=== PATIENT | female | born 1995 | race Caucasian/White ===

== ENCOUNTER 2017-05-04 16:42 | Emergency (ER) | payer OTHER ==
--- NOTE | 2017-05-04 16:59 | ED Physician Documentation ---
PD HPI FEMALE - Stated complaint Stated Complaint: ABD PX - Chief complaint Chief Complaint: Abd Pain - History obtained from History obtained from: Patient - History of Present Illness Timing - onset: Today (cramping lower abd pain without vaginal bleeding.) Timing - duration: Hours Timing - details: Gradual onset, Intermittant Associated symptoms: Pelvic pain. No: Fever, Vaginal bleeding, Vaginal discharge, Genital sore/lesion, Dysuria Contributing factors: (about 6 weeks by dates. 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 ) - Present Medications Home Medications: Ambulatory Orders Medication Instructions Recorded Confirmed Citalopram [CeleXA] 20 mg PO DAILY 05/04/17 05/04/17 Pnv95/Ferrous Fumarate/FA 1 each PO DAILY 05/04/17 05/04/17 [ Tablet] acetaZOLAMIDE [Diamox] 500 mg PO BID 05/04/17 05/04/17 - Allergies Allergies/Adverse Reactions: Allergies Allergy/AdvReac Type Severity Reaction Status Date / Time Penicillins Allergy Anaphylaxis Verified 05/04/17 16:53 - Living Situation Living Situation: reports: With spouse/s.o. Living Arrangement: reports: At home - Family History Family history: reports: Non contributory PD ED PE NORMAL - Vitals Vital signs reviewed: Yes - General General: Alert and oriented X 3, No acute distress, Well developed/nourished - HEENT HEENT: Pharynx benign - Neck Neck: Supple, no meningeal sign, No adenopathy - Cardiac Cardiac: RRR, No murmur - Respiratory Respiratory: Clear bilaterally - Abdomen Abdomen: Normal bowel sounds, Soft, Non distended, No organomegaly, Other (some tender suprapubic. No guarding. No general abd tenderness. No percussion tenderness. ) - Female Female : Deferred - Rectal Rectal: Deferred - Back Back: No CVA TTP - Derm Derm: Normal color, Warm and dry - Extremities Extremities: Normal ROM s pain, No edema, No calf tenderness / cord - Neuro Neuro: Alert and oriented X 3, No motor deficit, Normal speech Results - Vitals Vitals: Vital Signs - 24 hr 05/04/17 05/04/17 16:50 19:56 Temperature 36.8 C Heart Rate 77 71 Respiratory 18 16 Rate Blood Pressure 119/72 117/64 O2 Saturation 100 100 Oxygen O2 Source Room air - Labs Labs: Laboratory Tests 05/04/17 05/04/17 05/04/17 17:30 17:41 17:41 WBC 8.5 RBC 4.88 Hgb 13.6 Hct 40.5 MCV 83.1 MCH 27.9 MCHC 33.6 RDW 14.2 Plt Count 361 MPV 7.9 Neut # 6.1 Lymph # 1.8 Tompkins # 0.5 Eos # 0.1 Baso # 0.0 Absolute Nucleated RBC 0.00 Nucleated RBCs 0.0 Sodium 137 Potassium 3.7 Chloride 106 Carbon Dioxide 23 Anion Gap 8.0 BUN 11 Creatinine 0.7 Estimated GFR (MDRD) 105 Glucose 74 Calcium 9.6 Total Bilirubin 0.4 AST 18 ALT 22 Alkaline Phosphatase 64 Total Protein 7.9 Albumin 4.6 Globulin 3.3 Albumin/Globulin Ratio 1.4 Lipase 23 HCG, Quant Urine Color YELLOW Urine Clarity CLEAR Urine pH 6.0 Ur Specific [place] 1.015 Urine Protein NEGATIVE Urine Glucose (UA) NEGATIVE Urine Ketones NEGATIVE Urine Occult Blood NEGATIVE Urine Nitrite NEGATIVE Urine Bilirubin NEGATIVE Urine Urobilinogen 0.2 (NORMAL) Ur Leukocyte Esterase NEGATIVE Ur Microscopic Review NOT INDICATED Urine Culture Comments NOT INDICATED 05/04/17 17:41 WBC RBC Hgb Hct MCV MCH MCHC RDW Plt Count MPV Neut # Lymph # [place] # Eos # Baso # Absolute Nucleated RBC Nucleated RBCs Sodium Potassium Chloride Carbon Dioxide Anion Gap BUN Creatinine Estimated GFR (MDRD) Glucose Calcium Total Bilirubin AST ALT Alkaline Phosphatase Total Protein Albumin Globulin Albumin/Globulin Ratio Lipase HCG, Quant 6510.00 Urine Color Urine Clarity Urine pH Ur Specific [place] Urine Protein Urine Glucose (UA) Urine Ketones Urine Occult Blood Urine Nitrite Urine Bilirubin Urine Urobilinogen Ur Leukocyte Esterase Ur Microscopic Review Urine Culture Comments - Rads (name of study) OB U/S Radiology: Prelim report reviewed (gestational sac 5.4 weeks without sac. No free fluid. Normal ovaries. ) PD MEDICAL DECISION MAKING - ED course Complexity details: reviewed results (gestational sac without pole, is early at 5.4 weeks, but quant is at 6K. Talked with Dr. Rios who says reasonable for pt to f/u 2-3 days with her OB. Repeat quant in 2-3 days. Consider blighted ovum vs. potential ectopic vs. just early in . ), considered differential, d/w patient Departure - Departure Disposition: 01 Home, Self Care Clinical Impression: Early stage of , Pelvic pain affecting Condition: Stable Record reviewed to determine appropriate education?: Yes Instructions: ED Abdominal Pain Rule Out Ectopic Comments: Drink lots of fluids. Tylenol if needed for pains. Call your OB clinic tomorrow morning for an appointment in the next 3 or 4 days. Bring your report and ultrasound disc with you. Return sooner if increasing pain, vaginal bleeding, fever, other concerns. Discharge Date/Time: 05/04/17 19:57
[2017-05-04] MEDS ORDERED: ONDANSETRON ODT 4 MG TABLET TL STA (17:12)
[2017-05-04] MEDS ORDERED: ACETAMINOPHEN 325 MG TABLET PO STA (17:13)
[2017-05-04] MEDS ORDERED: IBUPROFEN 400 MG TABLET PO STA (17:13)
[2017-05-04] MEDS ORDERED: ACETAMINOPHEN 325 MG TABLET PO ONE (17:27)
[2017-05-04] MEDS ORDERED: IBUPROFEN 400 MG TABLET PO ONE (17:27)
[2017-05-04] MEDS ORDERED: ONDANSETRON ODT 4 MG TABLET ONE (17:28)
[2017-05-04 17:38] LABS: BILIRUBIN,URINE NEGATIVE (NEGATIVE)
[2017-05-04 17:40] LABS: UA CHARGE (STRIP ONLY) YES; UR CULTURE IF IND NOT INDICATED
[2017-05-04 17:57] LABS: BASOPHILS % (AUTO) 0.5 %; EOSINOPHILS # (AUTO) 0.1 10^3/uL (0.0-0.7); EOSINOPHILS % (AUTO) 0.9 %; HCT - HEMATOCRIT 40.5 % (37.0-47.0); HGB - HEMOGLOBIN 13.6 g/dL (12.0-16.0); LYMPHOCYTES # (AUTO) 1.8 10^3/uL (1.5-3.5); LYMPHOCYTES % (AUTO) 20.5 %; MEAN CORPUSCULAR HEMOGLOBIN 27.9 pg (27.0-31.0); MEAN CORPUSCULAR HGB CONC 33.6 g/dL (32.0-36.0); MEAN CORPUSCULAR VOLUME 83.1 fL (81.0-99.0); MEAN PLATELET VOLUME 7.9 fL (7.9-10.8); MONOCYTES # (AUTO) 0.5 10^3/uL (0.0-1.0); MONOCYTES % (AUTO) 6.2 %; NEUTROPHILS # (AUTO) 6.1 10^3/uL (1.5-6.6); NEUTROPHILS % (AUTO) 71.9 %; RED BLOOD COUNT 4.88 10^6/uL (4.20-5.40); RED CELL DISTRIBUTION WIDTH 14.2 % (12.0-15.0); UNCORRECTED WHITE BLOOD COUNT 8.5 x10^3/uL; WHITE BLOOD COUNT 8.5 x10^3/uL (4.8-10.8)
[2017-05-04 18:03] LABS: ALBUMIN/GLOBULIN RATIO 1.4 (1.0-2.2); BILIRUBIN,TOTAL 0.4 mg/dL (0.2-1.0); CALCIUM 9.6 mg/dL (8.5-10.3); CREATININE 0.7 mg/dL (0.4-1.0); POTASSIUM 3.7 mmol/L (3.5-5.0); TOTAL PROTEIN 7.9 g/dL (6.7-8.2)
--- NOTE | 2017-05-04 19:10 | Ultrasound Preliminary Report ---
Exam: US OB First Trimester IMPRESSION: 1. Intrauterine gestational sac without visualization of pole. Too early to assess cardiac acti vity and differentiate normal early intrauterine from blighted ovum. [facility] SITE ID: [id number]
--- NOTE | 2017-05-04 19:13 | Ultrasound Report ---
EXAM: FIRST TRIMESTER OBSTETRIC ULTRASOUND (Less than 11 weeks) EXAM DATE: 05/04/2017 06:39 PM. CLINICAL HISTORY: Lower abd pain today; 6 weeks preg. LMP: 03/31/2017. COMPARISONS: None. TECHNIQUE: Transabdominal and transvaginal ultrasound examination with static image documentation. CLINICAL DATES: EGA 4 weeks 5 days with MAYELIN 01/05/2018 based on LMP. ASSESSMENT: Gestational Sac: Single intrauterine. Mean gestational sac diameter: 8 mm = 5 weeks 4 days. Embryo: Not seen Cardiac activity: Does not apply Yolk sac: 1 mm. Amniotic fluid: Not accurately assessed at this gestational age. Early placenta: Not visible at this gestational age. Other: No perigestational fluid collection demonstrated. MATERNAL STRUCTURES: Uterus: Anteverted. Unremarkable. Cervix: Closed. Right Ovary: 3.4 x 1.3 x 1.5 cm, volume 3.3 cc. Unremarkable. Left Ovary: 2.7 x 1.8 x 2.8 cm, volume 6.6 cc. Unremarkable. Free Fluid: None. Other: Trace free fluid in the pelvis.. IMPRESSION: 1. Intrauterine gestational sac without visualization of pole. Too early to assess cardiac acti vity and differentiate normal early intrauterine from blighted ovum. [facility] Referring Provider Line: [phone] SITE ID: [id number]
--- NOTE | 2017-05-04 19:14 | Ultrasound Preliminary Report ---
Exam: US OB TRANSVAGINAL IMPRESSION: 1. Intrauterine gestational sac without visualization of pole. Too early to assess cardiac acti vity and differentiate normal early intrauterine from blighted ovum. SITE ID: [id number]
--- NOTE | 2017-05-04 19:17 | Ultrasound Report ---
EXAM: EXAM: FIRST TRIMESTER OBSTETRIC ULTRASOUND (Less than 11 weeks) EXAM DATE: 05/04/2017 06:39 PM. CLINICAL HISTORY: Lower abd pain today; 6 weeks preg. LMP: 03/31/2017. COMPARISONS: None. TECHNIQUE: Transabdominal and transvaginal ultrasound examination with static image documentation. CLINICAL DATES: EGA 4 weeks 5 days with MAYELIN 01/05/2018 based on LMP. ASSESSMENT: Gestational Sac: Single intrauterine. Mean gestational sac diameter: 8 mm = 5 weeks 4 days. Embryo: Not seen Cardiac activity: Does not apply Yolk sac: 1 mm. Amniotic fluid: Not accurately assessed at this gestational age. Early placenta: Not visible at this gestational age. Other: No perigestational fluid collection demonstrated. MATERNAL STRUCTURES: Uterus: Anteverted. Unremarkable. Cervix: Closed. Right Ovary: 3.4 x 1.3 x 1.5 cm, volume 3.3 cc. Unremarkable. Left Ovary: 2.7 x 1.8 x 2.8 cm, volume 6.6 cc. Unremarkable. Free Fluid: None. Other: Trace free fluid in the pelvis. IMPRESSION: 1. Intrauterine gestational sac without visualization of pole. Too early to assess cardiac acti vity and differentiate normal early intrauterine from blighted ovum. Referring Provider Line: [phone] SITE ID: [id number]
[2017-05-04 19:59] VITALS: BP 117/64
== END 2017-05-04 19:57 | disposition home or self-care (01) ==
LOC: ED 16:42
DX: O26.891 Other specified pregnancy related conditions, first trimester (principal); R10.2 Pelvic and perineal pain; Z3A.01 Less than 8 weeks gestation of pregnancy; Z86.61 Personal history of infections of the central nervous system
CPT/HCPCS: 36415; 76801; 76817; 80053; 81003; 83690; 84702; 85025; 99282; 99283; A9270; Q0162; 81001; 87086

== ENCOUNTER 2017-06-28 17:53 | Emergency (ER) | payer OTHER ==
[2017-06-28 18:29] VITALS: BP 133/77
== END 2017-06-28 19:15 | disposition left against medical advice (07) ==
LOC: ED 17:53
DX: Z53.21 Procedure and treatment not carried out due to patient leaving prior to being seen by health care provider (principal)
CPT/HCPCS: 99281

== ENCOUNTER 2017-11-23 21:03 | Outpatient (CLI) | payer OTHER ==
[2017-11-23 22:59] VITALS: BP 132/81
== END 2017-11-23 22:31 | disposition home or self-care (01) ==
LOC: WFO 21:03 → FBP 21:05 → WFO 22:22
PROVIDERS: ATTEND Obstetrics & Gynecology
DX: O36.8130 Decreased fetal movements, third trimester, not applicable or unspecified (principal); Z3A.33 33 weeks gestation of pregnancy
CPT/HCPCS: 99212

== ENCOUNTER 2017-11-26 22:13 | Outpatient (CLI) | payer OTHER ==
[2017-11-26 22:44] LABS: BILIRUBIN,URINE NEGATIVE (NEGATIVE); GLUCOSE, URINE (UA) NEGATIVE (NEGATIVE); KETONES,URINE (UA) NEGATIVE (NEGATIVE); LEUKOCYTE ESTERASE, URINE TRACE (NEGATIVE); NITRITE,URINE NEGATIVE (NEGATIVE); OCCULT BLOOD,URINE NEGATIVE (NEGATIVE); PH,URINE 6.5 PH (5.0-7.5); PROTEIN,URINE NEGATIVE (NEGATIVE); UROBILINOGEN,URINE 0.2 (NORMAL) E.U./dL (NORMAL)
[2017-11-26 22:50] LABS: BACTERIA,URINE Few /HPF (None Seen); CLARITY,URINE CLEAR (CLEAR); RBC,URINE 0-5 /HPF (0-5); SQUAMOUS EPITHELIAL CELL,UR MOD Squamous (<= Few)
[2017-11-26 23:04] VITALS: BP 122/79
[2017-11-26 23:07] LABS: BASOPHILS % (AUTO) 0.4 %; EOSINOPHILS # (AUTO) 0.1 10^3/uL (0.0-0.7); HGB - HEMOGLOBIN 12.8 g/dL (12.0-16.0); LYMPHOCYTES # (AUTO) 2.5 10^3/uL (1.5-3.5); LYMPHOCYTES % (AUTO) 22.4 %; MEAN CORPUSCULAR HEMOGLOBIN 27.5 pg (27.0-31.0); MEAN CORPUSCULAR HGB CONC 34.4 g/dL (32.0-36.0); MEAN PLATELET VOLUME 9.1 fL (7.9-10.8); MONOCYTES # (AUTO) 0.8 10^3/uL (0.0-1.0); NEUTROPHILS # (AUTO) 7.7 10^3/uL (1.5-6.6); NEUTROPHILS % (AUTO) 69.2 %; PLT - PLATELET COUNT 262 10^3/uL (130-450); RED BLOOD COUNT 4.65 10^6/uL (4.20-5.40); RED CELL DISTRIBUTION WIDTH 14.1 % (12.0-15.0); WHITE BLOOD COUNT 11.1 x10^3/uL (4.8-10.8)
[2017-11-26 23:13] LABS: URIC ACID 6.8 mg/dL (2.6-7.2)
[2017-11-26 23:22] LABS: ALBUMIN 2.6 g/dL (3.2-5.5); ALBUMIN/GLOBULIN RATIO 0.7 (1.0-2.2); BILIRUBIN,TOTAL 0.4 mg/dL (0.2-1.0); CALCIUM 8.6 mg/dL (8.5-10.3); CREATININE 0.8 mg/dL (0.4-1.0); TOTAL PROTEIN 6.4 g/dL (6.7-8.2)
--- NOTE | 2017-11-27 01:48 | HISTORY & PHYSICAL EXAMINATION ---
DATE OF SERVICE: 11/26/2017 Physician: Shankar Matthews MD DIAGNOSES 1. Primigravida at 34 weeks' gestation. 2. High risk [facility] patient for neurologic damage secondary to meningitis. 3. 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 4. Headaches. 5. Planned section at 36 weeks at [facility]. HISTORY OF PRESENT ILLNESS: The patient is a 22-year-old primigravida at 34 weeks' gestation who reports uterine contractions beginning earlier during the day. She also had contractions last night. She has no suspicion of leaking fluid. Her last exam at [facility] was 3 cm, 80% and 0 station. She has pseudotumor cerebri secondary to meningitis in 2012. She has nonfunctional shunts with revisions and a history of shunt infection. She was ICU hospitalized in 2012. Currently, she has no fevers, chills, visual disturbances, or right upper quadrant tenderness. PHYSICAL EXAMINATION VITAL SIGNS: Temperature 98.1. Blood pressure 127/77 - 122/79. Pulse is 99 to 92. Respirations 16. Oxygen saturation 99%. HEENT: Supple neck. Moist mucous membranes. ABDOMEN: Soft, nontender. No right upper quadrant tenderness. Uterus difficult to tell with her contractions, slightly obese. EXTERNAL MONITORING: Baseline 140s. Occasional apparent contractions every 6 to 7. EXTERNAL GENITALIA: No lesions. VAGINA: No blood or discharge. CERVIX: 2.5 to 3 cm dilatation, 60% effaced, -2. EXTREMITIES: Mild edema. LABORATORY DATA: Sodium 134, potassium 3.6, carbon dioxide slightly depressed, 17. Liver enzymes normal. Glucose 97. GFR 89. White count 11.1, hemoglobin 12.8, platelets 262. Urine: Negative protein, glucose, ketones, blood, and nitrite. Trace leukocyte esterase, a few bacteria, but clean catch. ASSESSMENT AND PLAN: This is a high-risk patient, approaching 34 weeks' gestation with a planned section at 36 weeks at [facility]. Currently, she does not seem to be preeclamptic nor in labor. There is irritability, and dilatation makes her vulnerable for delivery if tempo and intensity of contractions increase. There is no evidence of ruptured membranes at this time. Overall, the patient is vulnerable for delivery. Logistically, it is difficult to drive the 60 miles to the [place], catch a ferry, and then drive to [facility] if labor ensues. Given the size of the fetus, dilation, would anticipate an [id number] vaginal delivery instead of the planned . Discussed these issues with the patient and her mother. PLAN: [facility] will continue to give supportive care; however, it is strongly recommended that the patient find a living situation closer to [facility]. She is a [employer] , and there is a base at [place], which would cut 60 miles and a ferry ride from the travel to get to her hospital. Additionally, many [facility] have temporary housing for mothers who live remotely and need to be closer to care. I strongly urged patient and her family to explore these issues. Will also send this note to [TIME: 09:42] at the [facility] so that she can route this to the appropriate social work and other agencies in her system. TD: 11/27/2017 01:47
== END 2017-11-26 23:49 | disposition home or self-care (01) ==
LOC: WFO 22:13 → FBP 22:15 → WFO 23:49
PROVIDERS: ATTEND Obstetrics & Gynecology
DX: O09.893 Supervision of other high risk pregnancies, third trimester (principal); O99.353 Diseases of the nervous system complicating pregnancy, third trimester; G93.2 Benign intracranial hypertension; Z3A.34 34 weeks gestation of pregnancy; Z98.2 Presence of cerebrospinal fluid drainage device
CPT/HCPCS: 80053; 81001; 83615; 84450; 84550; 85025; 99213

== ENCOUNTER 2017-12-02 22:30 | Inpatient (IN) | payer OTHER ==
[2017-12-02] MEDS ORDERED: TERBUTALINE 1 MG/ML VIAL SUBQ SCH (23:00)
[2017-12-02] MEDS ORDERED: TERBUTALINE 1 MG/ML VIAL SUBQ ONE (23:05)
[2017-12-03] MEDS ORDERED: SODIUM CHLORIDE FLUSH 0.9% 10 ML SYRINGE ONE
--- NOTE | 2017-12-03 00:04 | PROVIDER PROGRESS NOTE ---
Subjective - Prog Note Date Prog Note Date: 12/02/17 Prog Note Time: 23:58 - Subjective Pt reports feeling: Worse Subjective: 22 yo with a 35w1d IUP presents to L&D with complaints of a worsening headache and visual changes. States she was just released from [facility] for [facility] check. She now states that she needs to go to the [facility] or her "head will explode. " The patient states she has shunts in her head. She cannot tell me if the baby is moving due to contractions. Denies vaginal bleeding or loss of fluid. Objective - Vital Signs/Intake & Output Vital Signs: Vital Signs x48h Temp Pulse Resp BP Pulse Ox 12/02/17 22:40 98.2 F 102 H 18 128/100 H 97 - Objective General Appearance: positive: No acute distress Eyes Bilateral: positive: Normal inspection Respiratory: positive: Chest non-tender, No respiratory distress, Breath sounds nml Cardiovascular: positive: Regular rate & rhythm Abdomen: positive: Non-tender, Other (Gravid) Neurologic/Psychiatric: positive: Oriented x3 - Other Results/Comments Other Results/Comments: NST baseline 130- 140's. Category 1 with reactivity. No Decels. Contractions S/ p terbutaline Q 4 - 6 minutes. CVE 1/80/-3 (vs last exam here 11/26/2017 2.5-3/ 60/ -2). Assessment/Plan - Problem List (1) Visual changes Impression: 22 yo with a 35w1d IUP Has FUMIGATOR AND STERILIZER and LP shunts in-situ contractions but reassuring and maternal statuses D/w Nayely Jamison MD who accepts transfer of care via [facility] ambulance Will establish IV and transfer H&P dictation #: [id number]
[2017-12-03] MEDS ORDERED: SODIUM CHLORIDE FLUSH 0.9% 10 ML SYRINGE IVP PRN (00:52)
[2017-12-03] MEDS ORDERED: SODIUM CHLORIDE FLUSH 0.9% 10 ML SYRINGE IVP SCH (01:00)
[2017-12-03] MEDS ORDERED: LACTATED RINGERS 1,000 ML IV SCH (01:00)
[2017-12-03] MEDS ORDERED: ONDANSETRON 4 MG/2 ML VIAL IVP PRN (01:21)
[2017-12-03] MEDS ORDERED: ONDANSETRON 4 MG/2 ML VIAL ONE (01:37)
[2017-12-03 02:25] VITALS: BP 105/83
--- NOTE | 2017-12-03 11:27 | HISTORY & PHYSICAL EXAMINATION ---
DATE OF SERVICE: 12/03/2017 Physician: Raquel Rios DO IDENTIFICATION: This is a 22-year-old, G1, P0, with a 35-week, 1-day intrauterine . EDC is 01/05/2018, consistent with a 6-week ultrasound. HISTORY OF PRESENT ILLNESS: The patient is a patient of [facility]. The patient has had a complicated medical history. In 2002, she had bacterial meningitis. This led to complications of a pseudotumor cerebri, necessitating FAMILY RESOURCE MANAGEMENT SPECIALIST and later an LP shunt. Currently the FAMILY RESOURCE MANAGEMENT SPECIALIST shunt is not working well. The LP shunt is functional. She then had 8 revisions of her shunt. In any event, the patient has been seen by Neurosurgery and Maternal Medicine. They recommend her to deliver via delivery under general anesthesia. In addition, this has also been complicated with contractions. The patient has been at the [facility] for several visits. Though I am not familiar with the patient's case, she appears to be admitted multiple times as of 30 weeks' gestation. Per the patient, she was just discharged from the [facility] either this morning or yesterday. The patient is currently dora every 4-6 minutes after a dose of terbutaline. Her cervical examination revealed she is 1 cm dilated, 80% effaced , and -3 station. This sounds jose juan the same exam that she has been having in the recent past. I do not have her records from her most recent hospitalization at [facility], but at her last visit at [facility] on 11/26/2017, her cervical examination revealed she was 2 -3 cm dilated, 60% effaced, and -2 station. heart tones were reassuring and reactive. There are no decelerations, baseline in the 130s to 140s. The patient states that either she gets transported to the [facility] or she will leave [place], or she will go to [facility] herself. I have spoken to the [facility], particularly Dr. Nayely Jamison, who is well versed with this patient. At this point in time, Dr. Jamison has accepted transfer of care of the patient. PAST MEDICAL HISTORY 1. Anxiety. 2. Obesity with a BMI of 34. 3. Remote history of bacterial meningitis requiring 1 month in the ICU and hydrocephalus as a complication. 4. Chronic pain. PAST SURGICAL HISTORY: Placement of LP and FAMILY RESOURCE MANAGEMENT SPECIALIST shunts with 8 revisions. ALLERGIES 1. PENICILLIN, WITH WHICH SHE HAS SHORTNESS OF BREATH. 2. VICODIN, WITH WHICH SHE HAS HIVES AND HALLUCINATIONS. MEDICATIONS 1. Diamox 250 mg 2 tabs p.o. at bedtime. 2. Citalopram 20 mg 1 tab p.o. at bedtime. SOCIAL HISTORY: She denies any tobacco, alcohol, or illicit drug use. The patient's is in the , and they most recently moved from [place]. This is a male with anticipated name of Dike. PAST OBSTETRICAL HISTORY: Primigravida. The [facility], again, has recommended a delivery under general anesthesia for delivery. The most recent OB records show that they recommend delivery at 38 weeks, but I do not have more current records of the plan of care. PAST GYNECOLOGICAL HISTORY: Noncontributory at this point in time. FAMILY HISTORY: Noncontributory. REVIEW OF SYSTEMS: She denies any nausea or vomiting, fevers or chills. OBJECTIVE VITAL SIGNS: Temperature is 98.2, heart rate 102, blood pressure 128/100. Most recent blood pressure has decreased to a diastolic in the 80s, respiration 18, O2 saturations 97%. GENERAL: The patient is a well-developed, well-nourished, female, in no apparent distress. She is alert and oriented x3. HEENT: Within normal limits. CARDIOVASCULAR: Rate is regular. No murmurs or rubs. PULMONARY: Lungs are clear to auscultation bilaterally. ABDOMEN: Gravid, nontender. ASSESSMENT 1. A 22-year-old, G1, P0, with a 35-1/7-week intrauterine . 2. contractions. 3. Worsening visual changes in the setting of ventriculoperitoneal and lumboperitoneal shunts. PLAN 1. I have discussed this patient's case with the on-call maternal medicine physician of the [facility], Dr. Nayely Jamison. Dr. Jamison recommends that the patient be transported to [facility] via [facility] ambulance at this point in time. 2. We will establish IV access on the patient, although she is currently a difficult stick. 3. GBS has been obtained today as I do not have any current records. Most likely, she has had this done in the recent past. cc: Nayely Jamison MD TD: 12/03/2017 02:51 MTDSacha
== END 2017-12-03 01:45 | disposition short-term general hospital (02) | DRG 780 ==
LOC: WFO 22:30 → FBP 22:33 → WFO 12-03 00:50 → FBP 12-03 00:52
PROVIDERS: ADMIT Obstetrics & Gynecology; ATTEND Obstetrics & Gynecology
DX: O47.03 False labor before 37 completed weeks of gestation, third trimester (principal); O99.89 Other specified diseases and conditions complicating pregnancy, childbirth and the puerperium; H53.9 Unspecified visual disturbance; R51 Headache; O99.353 Diseases of the nervous system complicating pregnancy, third trimester; G93.2 Benign intracranial hypertension; O99.213 Obesity complicating pregnancy, third trimester; O99.343 Other mental disorders complicating pregnancy, third trimester; F41.9 Anxiety disorder, unspecified; Z98.2 Presence of cerebrospinal fluid drainage device; Z3A.35 35 weeks gestation of pregnancy; Z68.34 Body mass index [BMI] 34.0-34.9, adult
CPT/HCPCS: 82731; 96372; 99214

== ENCOUNTER 2017-12-03 01:51 | Outpatient (CLI) | payer OTHER | END 2017-12-03 01:52 | disposition short-term general hospital (02) | LOC: EMS 01:51 | PROVIDERS: ATTEND Surgery | DX: O99.89 Other specified diseases and conditions complicating pregnancy, childbirth and the puerperium (principal); R51 Headache; H53.9 Unspecified visual disturbance; Z98.2 Presence of cerebrospinal fluid drainage device | CPT/HCPCS: A0425; A0428 ==

== ENCOUNTER 2019-01-06 21:13 | Emergency (ER) | payer OTHER ==
[2019-01-06 21:32] VITALS: BP 92/67
--- NOTE | 2019-01-06 22:22 | ED Physician Documentation ---
PD HPI NVD - Stated complaint Stated Complaint: FLU SYMPT - Chief complaint Chief Complaint: Abd Pain - History obtained from History obtained from: Patient - History of Present Illness Timing - onset: Enter time (04:00), Today Timing - details: Abrupt onset Pain level now: 10 (BERNARD) Associated symptoms: Fever (Tmax 103.7 earlier today), Dizzy, Near syncope / syncope. No: Abdominal pain Improved by: Other (nothing) Worsened by: Eating (any PO intake triggers nausea and vomiting) Similar symptoms before: Has not had sx before Recently seen: Not recently seen - Additonal information Additional information: since 4 AM this morning, patient has had nausea, vomiting, diarrhea. She gradually developed generalized headache. She has had intermittent lightheadedness during the day when ambulating, and has had 4 episodes of syncope. Patient says she had fevers during the day today, tmax 103.9 Review of Systems Constitutional: reports: Fever, Chills, Sweats Cardiac: reports: Reviewed and negative Respiratory: reports: Reviewed and negative GI: reports: Nausea, Vomiting, Diarrhea. denies: Abdominal Pain : denies: Dysuria, Frequency Skin: reports: Reviewed and negative Musculoskeletal: reports: Reviewed and negative Neurologic: reports: Generalized weakness, Syncope, Headache. denies: Focal weakness, Numbness PD PAST MEDICAL HISTORY - Past Medical History Past Medical History: Yes Other Past Medical History: meningitis, pseduotumor cerebri - Past Surgical History Past Surgical History: Yes Ortho: Shoulder arthroplasty Neuro: FITTINGS FINISHER shunt, Other - Present Medications Home Medications: Ambulatory Orders Medication Instructions Recorded Confirmed Citalopram [CeleXA] 20 mg PO DAILY 05/04/17 06/28/17 Pnv95/Ferrous Fumarate/FA 1 each PO DAILY 05/04/17 06/28/17 [ Tablet] acetaZOLAMIDE [Diamox] 500 mg PO BID 05/04/17 06/28/17 Diphenoxylate/Atropine [Lomotil] 1 each PO QID PRN #10 tablet 01/06/19 Ketorolac [Toradol] 10 mg PO Q6H PRN #14 tablet 01/06/19 Ondansetron Odt [Zofran] 4 mg TL Q6H PRN #10 tablet 01/06/19 - Allergies Allergies/Adverse Reactions: Allergies Allergy/AdvReac Type Severity Reaction Status Date / Time acetaminophen [From Vicodin] Allergy Rash Verified 01/06/19 21:32 hydrocodone [From Vicodin] Allergy Rash Verified 01/06/19 21:32 Penicillins Allergy Anaphylaxis Verified 01/06/19 21:32 - Living Situation Living Arrangement: reports: At home - Social History Does the pt smoke?: No Smoking Status: Never smoker Does the pt drink ETOH?: No Does the pt have substance abuse?: No - Immunizations Immunizations are current?: Yes - POLST Patient has POLST: No PD ED PE NORMAL - Vitals Vital signs reviewed: Yes - General General: Alert and oriented X 3, No acute distress - HEENT HEENT: Atraumatic, PERRL, EOMI, Pharynx benign, Other (pasty/tacky mucous membranes) - Neck Neck: Supple, no meningeal sign - Cardiac Cardiac: No murmur - Respiratory Respiratory: No respiratory distress, Clear bilaterally - Abdomen Abdomen: Normal bowel sounds, Soft, Non tender, Non distended - Derm Derm: Normal color, Warm and dry, No rash - Extremities Extremities: No edema - Neuro Neuro: Alert and oriented X 3, 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, No motor deficit, No sensory deficit, Normal speech Eye Opening: Spontaneous Motor: Obeys Commands Verbal: Oriented GCS Score: 15 PD ED PE EXPANDED - Cardiac Cardiac: Tachy, Regular Rhythm Results - Vitals Vitals: Oxygen O2 Source Room air - Labs Labs: Laboratory Tests 01/06/19 01/06/19 01/06/19 22:18 22:18 22:25 WBC 10.7 RBC 5.57 H Hgb 13.8 Hct 41.8 MCV 75.1 L MCH 24.8 L MCHC 33.1 RDW 17.4 H Plt Count 351 MPV 8.6 Neut # (Auto) 9.9 H Lymph # (Auto) 0.3 L [place] # (Auto) 0.4 Eos # (Auto) 0.0 Baso # (Auto) 0.0 Absolute Nucleated RBC 0.01 Nucleated RBC % 0.1 Sodium Potassium Chloride Carbon Dioxide Anion Gap BUN Creatinine Estimated GFR (MDRD) Glucose Calcium Total Bilirubin AST ALT Alkaline Phosphatase Total Protein Albumin Globulin Albumin/Globulin Ratio Lipase Urine Color YELLOW Urine Clarity HAZY Urine pH 5.5 Ur Specific [place] 1.025 1.025 Urine Protein TRACE Urine Glucose (UA) NEGATIVE Urine Ketones TRACE Urine Occult Blood LARGE H Urine Nitrite NEGATIVE Urine Bilirubin NEGATIVE Urine Urobilinogen 0.2 (NORMAL) Ur Leukocyte Esterase TRACE H Urine RBC 0-5 Urine WBC 6-10 H Ur Squamous Epith Cells MANY Squamous H Urine Bacteria Moderate H Ur Microscopic Review INDICATED Urine Culture Comments NOT INDICATED Urine HCG, Qual NEGATIVE Influenza A (Rapid) Influenza B (Rapid) 01/06/19 01/06/19 22:25 22:57 WBC RBC Hgb Hct MCV MCH MCHC RDW Plt Count MPV Neut # (Auto) Lymph # (Auto) [place] # (Auto) Eos # (Auto) Baso # (Auto) Absolute Nucleated RBC Nucleated RBC % Sodium 136 Potassium 2.9 L Chloride 103 Carbon Dioxide 21 Anion Gap 12.0 BUN 14 Creatinine 0.9 Estimated GFR (MDRD) 77 L Glucose 120 H Calcium 8.7 Total Bilirubin 0.7 AST 27 ALT 53 Alkaline Phosphatase 70 Total Protein 7.8 Albumin 4.3 Globulin 3.5 Albumin/Globulin Ratio 1.2 Lipase 22 Urine Color Urine Clarity Urine pH Ur Specific [place] Urine Protein Urine Glucose (UA) Urine Ketones Urine Occult Blood Urine Nitrite Urine Bilirubin Urine Urobilinogen Ur Leukocyte Esterase Urine RBC Urine WBC Ur Squamous Epith Cells Urine Bacteria Ur Microscopic Review Urine Culture Comments Urine HCG, Qual Influenza A (Rapid) Negative Influenza B (Rapid) Negative PD MEDICAL DECISION MAKING - ED course Complexity details: reviewed old records, reviewed results, re-evaluated patient, considered differential, d/w patient ED course: On reevaluation, after tests resulted and IV fluids, zofran, toradol, and PO lomotil, patient reports feeling significant improvement and requests d/c home. Given PO potassium for low K Departure - Departure Disposition: Home, Self Care Clinical Impression: Hypokalemia Diarrhea Qualifiers: Diarrhea type: unspecified type Qualified Code(s): R19.7 - Diarrhea, unspecified Vomiting Qualifiers: Vomiting type: unspecified Vomiting Intractability: non-intractable Nausea presence: with nausea Qualified Code(s): R11.2 - Nausea with vomiting, unspecified Condition: Good Instructions: ED Potassium Deficiency, ED Vomiting Diarrhea Nonspecific Ad Prescriptions: Diphenoxylate/Atropine [Lomotil] 1 each PO QID PRN #10 tablet PRN Reason: Diarrhea Ketorolac [Toradol] 10 mg PO Q6H PRN #14 tablet PRN Reason: Headache Ondansetron Odt [Zofran] 4 mg TL Q6H PRN #10 tablet PRN Reason: Nausea / Vomiting Discharge Date/Time: 01/06/19 23:48
[2019-01-06] MEDS ORDERED: ONDANSETRON 4 MG/2 ML VIAL IVP STA (22:35)
[2019-01-06] MEDS ORDERED: KETOROLAC 30 MG/ML VIAL IVP STA (22:35)
[2019-01-06] MEDS ORDERED: SODIUM CHLORIDE 0.9% 1,000 ML IV STA (22:35)
[2019-01-06] MEDS ORDERED: DIPHENOX/ATROPINE 2.5/0.025 MG TABLET PO STA (22:35)
[2019-01-06 22:57] LABS: BASOPHILS % (AUTO) 0.4 %; EOSINOPHILS % (AUTO) 0.2 %; HGB - HEMOGLOBIN 13.8 g/dL (12.0-16.0); LYMPHOCYTES # (AUTO) 0.3 10^3/uL (1.5-3.5); LYMPHOCYTES % (AUTO) 3.2 %; MEAN CORPUSCULAR HEMOGLOBIN 24.8 pg (27.0-31.0); MEAN CORPUSCULAR HGB CONC 33.1 g/dL (32.0-36.0); MEAN CORPUSCULAR VOLUME 75.1 fL (81.0-99.0); MEAN PLATELET VOLUME 8.6 fL (7.9-10.8); MONOCYTES # (AUTO) 0.4 10^3/uL (0.0-1.0); MONOCYTES % (AUTO) 3.7 %; NEUTROPHILS # (AUTO) 9.9 10^3/uL (1.5-6.6); NEUTROPHILS % (AUTO) 92.5 %; PLT - PLATELET COUNT 351 10^3/uL (130-450); RED BLOOD COUNT 5.57 10^6/uL (4.20-5.40); RED CELL DISTRIBUTION WIDTH 17.4 % (12.0-15.0); WHITE BLOOD COUNT 10.7 x10^3/uL (4.8-10.8)
[2019-01-06 22:57] LABS: BILIRUBIN,URINE NEGATIVE (NEGATIVE); CLARITY,URINE HAZY (CLEAR); GLUCOSE, URINE (UA) NEGATIVE (NEGATIVE); KETONES,URINE (UA) TRACE mg/dL (NEGATIVE); LEUKOCYTE ESTERASE, URINE TRACE (NEGATIVE); NITRITE,URINE NEGATIVE (NEGATIVE); OCCULT BLOOD,URINE LARGE (NEGATIVE); PH,URINE 5.5 PH (5.0-7.5); PROTEIN,URINE TRACE mg/dL (NEGATIVE); UROBILINOGEN,URINE 0.2 (NORMAL) E.U./dL (NORMAL)
[2019-01-06 23:09] LABS: ALBUMIN 4.3 g/dL (3.2-5.5); ALBUMIN/GLOBULIN RATIO 1.2 (1.0-2.2); BILIRUBIN,TOTAL 0.7 mg/dL (0.2-1.0); CALCIUM 8.7 mg/dL (8.5-10.3); CREATININE 0.9 mg/dL (0.4-1.0); TOTAL PROTEIN 7.8 g/dL (6.7-8.2)
[2019-01-06 23:19] LABS: BACTERIA,URINE Moderate /HPF (None Seen); RBC,URINE 0-5 /HPF (0-5); SQUAMOUS EPITHELIAL CELL,UR MANY Squamous (<= Few)
[2019-01-06] MEDS ORDERED: POTASSIUM BICARB 25 MEQ TABLET PO STA (23:32)
[2019-01-06 23:54] LABS: HCG UR QUAL NEGATIVE
== END 2019-01-06 23:48 | disposition home or self-care (01) ==
LOC: ED 21:13
DX: E87.6 Hypokalemia (principal); R19.7 Diarrhea, unspecified; R11.2 Nausea with vomiting, unspecified; Z98.2 Presence of cerebrospinal fluid drainage device
CPT/HCPCS: 36415; 80053; 81001; 81025; 83690; 85025; 87275; 87276; 93005; 96374; 99283; A9270; 81003; 87086